=== PATIENT | female | born 1930 | race Caucasian/White ===

== ENCOUNTER → 2016-11-02 | Outpatient (CLI) | payer MEDICARE ==
[~2016-11-02] MED LIST: ASPIR LOW81 MG PO; COLACE100 MG PO; FLONASE ALLERG9.9 ML NAS; FOSAMAX70 MG PO; HYDR25T PO; MECLIZINE25 MG PO; NORVASC10 MG PO; OSCAL/D,OYSTER250 MG PO; SYNTHROID0.05 MG PO
== END | disposition home or self-care (01) ==
LOC: MAMMO 13:57
DX: Z12.31 Encounter for screening mammogram for malignant neoplasm of breast (principal)

== ENCOUNTER 2017-03-07 10:16 | Inpatient (IN) | payer MEDICARE ==
[2017-03-07] VITALS (20 sets, daily range): BP systolic 122–192; BP diastolic 52–131
[~2017-03-07] VITALS: Ht 160 cm; Wt 65.9 kg
--- NOTE | ~2017-03-07 | PR ---
[place], [place] PROGRESS NOTE NAME: CLEMTWAN UNIT #: [id number] ROOM: 529 DOCTOR: KACY ZARATE MD BIRTHDATE: [birth year] DOS: SUBJECTIVE: The patient is doing fine without any complaints this morning. She is anxious to go home. She does not have any complaints of chest pains, palpitations or dizziness. She has no more diarrhea noted. OBJECTIVE: VITAL SIGNS: Blood pressure is 152/65, pulse of 73, respirations 18, temperature 98.5. LUNGS: Clear. HEART: Regular. ABDOMEN: Obese, soft, nontender. EXTREMITIES: Without any edema. LABORATORY DATA: MRSA of the nares negative. BMP shows potassium of 3.2. WBC count is normal, hemoglobin and hematocrit are normal. Echocardiogram showed evidence of wall motion abnormalities in the anterior wall and septum and apex. Troponin was elevated, maximum was 1.79. ASSESSMENT AND PLAN: 1. Acute non-ST elevation myocardial infarction. Nitrates and Lovenox. We will discontinue Lovenox and place the patient on Plavix and aspirin. 2. Adult failure to thrive. Suggested the patient's stay, but she is wanting to go home. She does have visiting nurses at home and the plan is to discharge her to home today to follow up as an outpatient. 3. Complete heart block. Pressures are maintained. She refuses to have any further interventions. KACY ZARATE MD CM:PNTRANS [phone] KACY ZARATE MD 03/09/171752 interface
--- NOTE | ~2017-03-07 | WRIGHTHP ---
[place], [place] PATIENT HISTORY AND PHYSICAL EXAM [id number] UNIT #: [id number] ROOM: [place] [address] DOCTOR: KACY ZARATE MD BIRTHDATE: [birth year] DOS: 03/07/2017 HISTORY OF PRESENT ILLNESS: This patient is 86 years old. The patient had called the office this morning stating that she was having black colored stools and so was advised to come into the emergency room. In the ER, she had a workup, which included Hemoccult, which was negative, but ____ workup, EKG was performed and showed that she was in complete heart block, so she was admitted to the hospital. She denied having any chest pains, palpitations. She felt fine when she came into the emergency room. She did not have any abdominal pain, nausea and emesis and she was taking Pepto-Bismol for her diarrhea which may have caused the stools to be black. After she got admitted to the hospital, she was in the 5th floor, she went to the bathroom, was trying to get back into her bed when she stated that she was not feeling good and developed 8-beat run of V-tach and so the patient was transferred to the ICU. In the ICU again, the patient states that she had some minimal right-sided arm pain with some minimal chest discomfort and tightness almost like a person sitting on her chest. She denies having any shortness of breath, any palpitations, nausea, any emesis, any abdominal pain, any fever or chills. PAST MEDICAL HISTORY: Significant for: 1. Last hospitalization 2 years ago. 2. Benign hypertension. 3. Situs inversus. 4. Osteoporosis. 5. Hypothyroidism. 6. Chronic dizziness with a negative carotid Doppler in 2014. 7. Postmenopausal osteoporosis. MEDICATIONS: Meclizine, Norvasc, calcium, hydrochlorothiazide, levothyroxine, melatonin, rivastigmine. SOCIAL HISTORY: Nonsmoker, does not use any alcohol. Lives at home. She is retired. PHYSICAL EXAMINATION: GENERAL: She is awake and alert and oriented, in no distress at all. VITAL SIGNS: Blood pressure is 182/90, pulse of 52, respirations 20, temperature 97.6. LUNGS: Diminished breath sounds. HEART: Regular. ABDOMEN: Obese, soft, nontender. EXTREMITIES: Without any edema. LABORATORY DATA: Echocardiogram not available. EKG showed complete heart block, the first one in the emergency room. White cell count is normal at 6.7, hemoglobin 13.7. Comprehensive glucose 93, BUN 13, creatinine 0.59, sodium 143, potassium 3.5, chloride 108, bicarbonate 28, calcium 8.5. Liver enzymes normal. ASSESSMENT AND PLAN: 1. Complete heart block noted on EKG. The patient has been admitted. [place], [place] PATIENT HISTORY AND PHYSICAL EXAM NAME: WAN REARDON UNIT #: [id number] ROOM: [place] [address] DOCTOR: KACY ZARATE MD BIRTHDATE: [birth year] Cardiology consultation was obtained. The patient is not on any rate-reducing medicines, but will hold off on all her medicines right now. 2. Nonsustained ventricular tachycardia noted on the monitor. She was sent to the ICU for monitoring, long discussion with the patient as well as cardiology. She did not want any further workup or procedures, so the patient is not going to be transferred. We will monitor her. Nitrates are given for improvement of the perfusion. The patient will be started on Lovenox and aspirin. Echocardiogram will be ordered and try to keep her comfortable here. Code status papers have been signed. 3. Hypothyroidism. Continue home meds. KACY ZARATE MD CM:HISPHYS:PATIENT HISTORY AND PHYSICAL EXAMINATION [id number] KACY ZARATE MD 03/08/17 4633 interface
--- NOTE | ~2017-03-07 | PR ---
[place], [place] PROGRESS NOTE NAME: CLEMTWAN UNIT #: [id number] ROOM: [place] [address] DOCTOR: KACY ZARATE MD BIRTHDATE: [birth year] DOS: SUBJECTIVE: The patient is not having any complaints. She feels good, did have a good night's rest. OBJECTIVE: VITAL SIGNS: Graphic trend shows blood pressure 126/61, pulse of 50, respirations 18, temperature 98.0. LUNGS: Clear. HEART: Regular. ABDOMEN: Obese, soft, nontender. EXTREMITIES: Without any edema. LABORATORY DATA: Troponin was mildly elevated yesterday, initial one was normal at the time of admission in the evening. The troponin after the episode of V-tach did go up to 0.27. No other troponin is available. ASSESSMENT AND PLAN: 1. Complete heart block. The patient has requested no further interventions be performed, so we are not planning for pacemaker. 2. Possibility of a non-ST elevation myocardial infarction. Troponin is slightly elevated. We will repeat a troponin this morning. We will discontinue IV nitroglycerin, place on nitroglycerin paste and continue aspirin.. 3. Benign hypertension. Home meds are on hold. Discussed with the patient, eat a liberal diet. PT will be consulted and hopefully home soon. KACY ZARATE MD CM:PNTRANS [phone] KACY ZARATE MD 03/08/17 1116 interface
--- NOTE | ~2017-03-07 | DS ---
[place], [place] DISCHARGE SUMMARY NAME: WAN REARDON UNIT #: [id number] ROOM: 529 DOCTOR: KACY ZARATE MD BIRTHDATE: [birth year] DOS: 03/09/2017 The patient is 86-year-old. She is going home with visiting nurses. DISCHARGE DIAGNOSES: 1. Acute myocardial infarction. 2. Complete heart block. 3. Nonsustained ventricular tachycardia. 4. Benign hypertension. 5. Age-related cognitive decline. 6. Hypothyroidism. 7. Chronic dizziness. 8. Postmenopausal osteoporosis. 9. Situs inversus. 10. Hypokalemia. DISCHARGE MEDICATIONS: Plavix 75 daily, aspirin 81 daily; nitroglycerin 0.2 mg apply in the morning, remove in the evening; levothyroxine 50 mcg daily, meclizine 25 p.o. every other day, calcium of 500 twice a day, Flonase 2 sprays daily, melatonin 10 at bedtime, Exelon 9.5 daily. Norvasc and hydrochlorothiazide were discontinued. HOSPITAL COURSE: This patient is 86 years old. The patient was brought in because of some black-colored stools and diarrhea that she had at home. She was evaluated in the ER, was found to have complete heart block and the patient was admitted. After admission, she was placed on a monitored floor. She did not have any complaints of chest pains or palpitations when she arrived. Her troponin was normal, but while in the 5th floor, she developed a beat run of V-tach and she was transferred to the ICU. Repeat troponin showed that continued elevation suggesting that the patient did have an IN. Echocardiogram showed dyskinetic alston in the apex anterior and septal area suggesting most likely the patient did have an IN. A consultation with Dr. Lora was obtained. The patient was placed on Lovenox and nitrite. Condition was discussed with the patient as regards to transfer and the pacemaker and cardiac catheterization. The patient refused and wants to be kept comfortable. She is aware of what could happen if these are not performed and the possibility of and she is agreeable to go home to be kept comfortable and not to do any further intervention. Hyperkalemia was noted today. Supplementation will be given. The patient is overall stable. The plan is to discharge her to home with visiting nurses and PT, OT. She is ambulatory without any further complaints of dizziness. [place], [place] DISCHARGE SUMMARY NAME: WAN REARDON UNIT #: [id number] ROOM: 529 DOCTOR: KACY ZARATE MD BIRTHDATE: [birth year] KACY ZARATE MD CM:DISCHEDGAR [phone] KACY ZARATE MD 03/09/17 1024 interface
[~2017-03-07 10:16] MED LIST changes: -MECLIZINE25 MG PO; +Meclizine25 MG PO
[2017-03-07 11:00] LABS: BASO % 0.4 % (0.0-1.0); EOS # 0.1 10*3/uL (0.0-0.4); EOS % 0.9 % (1.0-4.0); HEMATOCRIT 40.2 % (37.0-47.0); HEMOGLOBIN 13.7 g/dl (12.0-16.0); LYMPH # 1.7 10*3/uL (1.3-4.4); LYMPH % 24.8 % (27.0-41.0); MEAN CORPUSCULAR HGB CONC 34.1 g/dl (33.0-37.0); MONO # 0.6 10*3/uL (0.1-1.0); MONO % 8.6 % (3.0-9.0); NEUT # 4.4 10*3/uL (2.3-7.9); PLATELET COUNT AUTOMATED 235 10*3/uL (130-400); RED BLOOD COUNT 4.42 10*6/uL (4.10-5.10); RED CELL DISTRI WIDTH 13.2 % (0-14.5); WHITE BLOOD COUNT 6.7 10*3/uL (4.8-10.8)
[2017-03-07 11:08] LABS: ACT PARTIAL THROMBO TIME 27.5 SECONDS (20.8-31.5); INTERNATIONAL NORM RATIO 1.1 (2.0-3.5)
--- NOTE | 2017-03-07 11:09 | NUR ---
PATIENT STATES THAT SHE CANNOT REMEMBER WHEN HER BLACK TARRY STOOLS STARTED. STATES SHE NOTICED THEM ALL WEEK.
[2017-03-07 11:13] LABS: ALBUMIN 3.6 gm/dl (3.1-4.5); ALKALINE PHOSPHATASE 76 U/L (45-117); BUN 13 mg/dl (7-24); CHLORIDE 108 mmol/L (98-107); CREATININE 0.59 mg/dL (0.55-1.02); MAGNESIUM 2.2 mg/dL (1.5-2.1); POTASSIUM 3.5 mmol/L (3.5-5.1); SGOT/AST 15 IU/L (3-35); SGPT/ALT 16 U/L (12-78); SODIUM 143 mmol/L (136-145); TOTAL PROTEIN 7.4 gm/dL (6.4-8.2)
[2017-03-07 11:40] LABS: TROPONIN I < 0.015 ng/ml (<0.045)
--- NOTE | 2017-03-07 11:40 | NUR ---
PATIENT HEMACULT DONE AT THIS TIME THIS NURSE AT BEDSIDE WITH DR FOSTER. NEGATIVE.
--- NOTE | 2017-03-07 11:44 | NUR ---
REPORT GIVEN TO MIGUEL HURTADO AT THIS TIME.
[2017-03-07 11:45] LABS: THYROID STIM HORMONE (HS) 0.919 uIU/ml (0.358-4.75)
--- NOTE | 2017-03-07 12:09 | NUR ---
IV STARTED L ARM 1 UNSUCCESSFUL ATTEMPT TO LEFT ARM PT TOLERATED WELL NO DISTRESS NOTED CALL LIGHT IN REACH
--- NOTE | 2017-03-07 12:22 | NUR ---
PT RESTING IN BED NO DISTRESS DENIES PAIN AT THIS TIIME AWAKE ALERT ORIENTED NO COMPLAINTS VOICED CALL LIGHT IN REACH
--- NOTE | 2017-03-07 12:30 | NUR ---
ASSISTED PT TO BATHROOM NO DISTRESS NOTED DENIES SOB OR DIZZINESS WHEN STOOD AND GOT IN WC
--- NOTE | 2017-03-07 13:10 | NUR ---
A 86, admitted to , under the services of KACY Barakat MD with a diagnosis of COMPLETE HEART BLOCK . Chief complaint is BLACK TARRY STOOL. Patient arrived via CART WITH RN from ER. Monitor applied. Initial assessment completed. Vital signs taken and recorded. KACY BARAKAT MD notified of admission to the unit. Orders received. See assessment for past medical history, medications and allergies. Patient and/or family oriented to unit. [facility] ICCU visitation policy reviewed. Clothing/patient valuable form completed. STEPHANIE LAM
[2017-03-07] MEDS ORDERED: MELATONIN10 M2 PO (13:49)
[2017-03-07] MEDS ORDERED: EXELON1 EAC1 T (13:50)
--- NOTE | 2017-03-07 14:18 | NUR ---
PT BEGAN C/O CHEST PRESSURE AND DYSPNEA WHILE WALKING FROM THE BATHROOM WITH THE PADENNY.VITALS OBTAINED.PT BECAME PALE AND C/O NAUSEA. PLACED PT ON 2LNC.ORDERED STAT EKG, NOTIFIED DR BROWN AND DR ZARATE. VITALS OBTAINED.BP 182/90, HR 88.
--- NOTE | 2017-03-07 14:29 | NUR ---
PT GULPING FOR AIR AND STILL C/O NAUSEA, AND PRESSURE TO RIGHT ARM. DR FRIEND ARRIVED TO SEE PT.
--- NOTE | 2017-03-07 14:30 | NUR ---
PT TRANSFERRED TO ICCU FROM 5E R/T COMPLETE HEART BLOCK WITH RUNS OF VTACH AND CHEST PAIN. DR ZARATE AND DR BROWN WERE HERE TO ASSESS UPON ARRIVAL. ORDERS RECIEVED AND CARRIED OUT.
--- NOTE | 2017-03-07 14:36 | NUR ---
EKG GIVEN TO DR FRIEND AND ORDER RECIEVED TO TRANSFER PT TO UNIT.
--- NOTE | 2017-03-07 14:50 | NUR ---
Pt. transferred to ICCU via CART ACCOMPANIED BY RN per order of Dr. BROWN. Bed # 11. Cloud Autom[employer] Tester notified. Family notified. Personal belongings retained on unit.Report given to Tia Marquez RN. STEPHANIE LAM
--- NOTE | 2017-03-07 20:19 | NUR ---
PT. RESTING IN BED WATCHING TV. DENIES CHEST PAIN OR DISCOMFORT. PULSE OX 95% ON 1L NC. LUNGS CLEAR. ABDOMEN SOFT, NONDISTENDED AND NORMO. NO PERIPHERAL EDEMANOTED. HEP LOCK IN LA ASYMPT. GENNY DURHAM RN
--- NOTE | 2017-03-07 23:46 | NUR ---
PT. GIVEN AMBIEN AT 2224 FOR COMPLAINTS OF INABILITY TO SLEEP. CURRENTLY SLEEPING, AMBIEN EFFECTIVE. GENNY DURHAM RN
[2017-03-08] VITALS (12 sets, daily range): BP systolic 107–154; BP diastolic 52–99
--- NOTE | 2017-03-08 08:00 | NUR ---
Section Gang Worker in to talk to patient. Patient states lives at HOME ALONE with . There are 3 steps in the home. Physician: DR ZARATE Pharmacy: Home health services: [facility] NURSE AND [facility].T. Patient's level of ADLs: MINIMAL ASSIST Patient has working utilities: YES DME: HAS WALKER AND CANE BUT NOT USING Follow-up physician's appointment after d/c: PREFERS TO MAKE HER OWN APPT Does patient want to access PORTAL?: Discharge plan HOME. RADHA ISAAC [facility] NOTIFIED THAT PT IS HERE.
--- NOTE | 2017-03-08 08:44 | NUR ---
DR. ZARATE AND DR. BROWN HAVE ROUNDED.
--- NOTE | 2017-03-08 09:05 | NUR ---
PHYSICAL THERAPY PAtient evaluated in ICCU, full evaluation to follow. Comntinue with PT as per plan of care with fall, cardiac and active GA precautions. Home with home health RN and PT as prior. PAtient is modrate complexity via chart review, tests and evaluation: [id number]. Thank you for this referral. Jia Beard,PT
--- NOTE | 2017-03-08 09:12 | NUR ---
NITRO GTT HAS BEEN TITRATED OFF.
--- NOTE | 2017-03-08 10:40 | NUR ---
LEFT MESSAGE AT DR. ZARATE OFFICE THAT DR. BROWN PUT IN ORDER OK TO TRANFER TO [facility] NITRO GTT IS OFF.
--- NOTE | 2017-03-08 12:12 | NUR ---
PHYSICAL THERAPY Mrs Hale was seen this PM 1:1 for her therapy session. Said that she could go now but could i come back tomorrow that would be better. ROSA COLON COOK FRUIT.
--- NOTE | 2017-03-08 12:35 | NUR ---
PATIENT TO TRANSFER TO STEP DOWN.
--- NOTE | 2017-03-08 13:15 | NUR ---
PATIENT TRANSFERED TO 529 NURSE TO NURSE REPORT GIVEN.
--- NOTE | 2017-03-08 13:39 | NUR ---
PATIENT ARRIVED TO FLOOR FROM ICU, SHE IS ALERT AND ORIENTED, RESPIRATIONS EASY AND REGULAR ON ROOM AIR, MASTICATOR IN PLACE; 3RD DEGREE HEART BLOCK RATE 50'S AND IRREGULAR NOTED. SHE DENIES ANY CHEST PAIN, SHORTNESS OF BREATH, DISCOMFORT, OR ACTIVITY INTOLERANCE.
--- NOTE | 2017-03-08 20:49 | NUR ---
SPOKE TO REGARDING PATIENT CLAIMS OF BLACK LIQUID STOOL. NEW ORDER RECEIVED FOR C-DIFF X3, STOOL CULTURE, AND FECAL OCCULT IMMUNOSAY. CBC AND BMP ALREADY ORDERED FOR TOMORROW MORNING.
--- NOTE | 2017-03-08 22:21 | NUR ---
PT MEDICATED WITH PO AMBIEN FOR C/O INSOMNIA. WILL MONITOR EFFECTIVENESS. CALL LIGHT LEFT IN REACH.
[2017-03-09] VITALS: BP 152/65
--- NOTE | 2017-03-09 00:11 | NUR ---
PATIENT SLEEPING IN BED AT THIS TIME. EARLIER MEDICATION APPEARS EFFECTIVE. WILL MONITOR.
--- NOTE | 2017-03-09 03:26 | NUR ---
PATIENT ASLEEP IN BED. RESPIRATIONS EASY. NO S/S OF DISTRESS NOTED. WILL MONITOR.
[2017-03-09 06:14] LABS: BUN 11 mg/dl (7-24); CHLORIDE 110 mmol/L (98-107); CREATININE 0.66 mg/dL (0.55-1.02); POTASSIUM 3.2 mmol/L (3.5-5.1); SODIUM 146 mmol/L (136-145)
[2017-03-09 06:26] LABS: BASO % 0.5 % (0.0-1.0); EOS # 0.1 10*3/uL (0.0-0.4); EOS % 0.9 % (1.0-4.0); HEMATOCRIT 37.1 % (37.0-47.0); HEMOGLOBIN 12.4 g/dl (12.0-16.0); LYMPH # 2.3 10*3/uL (1.3-4.4); LYMPH % 30.7 % (27.0-41.0); MEAN CELL VOLUME 91.2 fl (81.0-99.0); MEAN CORPUSCULAR HGB 30.5 pg (27.0-31.0); MEAN CORPUSCULAR HGB CONC 33.4 g/dl (33.0-37.0); MEAN PLATELET VOLUME 12.4 fl (9.6-12.3); MONO # 0.7 10*3/uL (0.1-1.0); MONO % 9.5 % (3.0-9.0); NEUT # 4.4 10*3/uL (2.3-7.9); NEUT % 58.1 % (47.0-73.0); PLATELET COUNT AUTOMATED 224 10*3/uL (130-400); RED BLOOD COUNT 4.07 10*6/uL (4.10-5.10); RED CELL DISTRI WIDTH 13.2 % (0-14.5); WHITE BLOOD COUNT 7.6 10*3/uL (4.8-10.8)
[2017-03-09 08:00] VITALS: BP 150/78
[2017-03-09] MEDS ORDERED: CLOPIDOGREL75 MG PO (08:37)
[2017-03-09] MEDS ORDERED: Transderm-Nitr0.2 MG T (08:37)
--- NOTE | 2017-03-09 10:06 | NUR ---
PHYSICAL THERAPY Adeline seen this AM 1:1 for her therapy treatment. Pt moved out of ICCU to 529-1. All transfers were CG X 1, no LOB. Gait total 210' X 2, no LOB CG X 1. Dr Richard said that Mrs Hale is to go home today. ROSA COLON SERIALS LIBRARIAN.
--- NOTE | 2017-03-09 10:37 | NUR ---
Patient being discharged to home to resume home health. Contacted [facility] and faxed clinicals
--- NOTE | 2017-03-09 11:41 | NUR ---
PHYSICAL THERAPY CO-SIGN I approve of the Phyical Therapy notes written above. VERONIKA ANDUJAR PT
--- NOTE | 2017-03-09 12:32 | NUR ---
1232 Discharge instructions reviewed with patient. Patient receptive and verbalizes understanding. Follow-up care arranged. Written instructions given to patient. BRINDA DRIVER
== END 2017-03-09 12:32 | disposition home health service (06) | DRG 281 ==
LOC: ED 10:16 → 5E 11:54 → EDHOLD 11:54 → ICCU 11:54 → 5E 12:42 → ICCU 14:47 → 5E 03-08 12:52
PROVIDERS: Emergency Medicine; ADMIT Internal Medicine
DX: I21.09 ST elevation (STEMI) myocardial infarction involving other coronary artery of anterior wall (principal); I44.2 Atrioventricular block, complete; Q89.3 Situs inversus; R41.81 Age-related cognitive decline; I10 Essential (primary) hypertension; Z66 Do not resuscitate; R42 Dizziness and giddiness; E89.0 Postprocedural hypothyroidism; Z51.5 Encounter for palliative care; R62.7 Adult failure to thrive; M81.0 Age-related osteoporosis without current pathological fracture; E87.6 Hypokalemia; Z79.82 Long term (current) use of aspirin; Z79.899 Other long term (current) drug therapy; Z80.9 Family history of malignant neoplasm, unspecified

== ENCOUNTER → 2017-03-11 | Outpatient (CLI) | payer MEDICARE ==
[~2017-03-11] MED LIST changes: +CLOPIDOGREL75 MG PO; +EXELON1 EAC1 T; +MELATONIN10 M2 PO; +Transderm-Nitr0.2 MG T
== END | disposition home or self-care (01) ==
LOC: LAB 00:01
DX: R19.7 Diarrhea, unspecified (principal)

== ENCOUNTER → 2017-03-12 | Outpatient (CLI) | payer MEDICARE | END | disposition home or self-care (01) | LOC: LAB 00:01 | DX: R19.7 Diarrhea, unspecified (principal) ==

== ENCOUNTER → 2017-03-13 | Outpatient (CLI) | payer MEDICARE | END | disposition home or self-care (01) | LOC: LAB 11:39 | DX: R19.7 Diarrhea, unspecified (principal) ==

== ENCOUNTER 2018-03-15 16:53 | Emergency (ER) | payer MEDICARE ==
[~2018-03-15] VITALS: Ht 165.1 cm; Wt 63.5 kg
--- NOTE | ~2018-03-15 | EKG ---
[place], [place] ELECTROCARDIOGRAM REPORT NAME: CLEMTWAN UNIT #: [id number] ROOM: DOCTOR: LAUREL DRAFT REPORT BIRTHDATE: [birth year] [facility] Test Date: 2018-03-15 Test Time: 17:19:16 Pat Name: WAN REARDON Department: Room: Gender: F Die Set Up Worker: : 1930 Requested By: RONA FOSTER Order Number: [id number] Reading MD: Delaney Roldan MD Measurements Intervals [place] Rate: 66 P: 0 W[place]: QRS: 193 QRSD: 104 T: 93 QT: 417 QTc: 437 Interpretive Statements AV block, complete (third degree) Consider left ventricular hypertrophy Limb lead reversal Compared to ECG 03/14/2018 13:59:30 Sinus rhythm no longer present Junctional rhythm no longer present Electronically Signed On 03-20-2018 13:51:35 PDT by Delaney Roldan MD CM:EKGRPT:ELECTROCARDIOGRAM REPORT [id number] RONA BARRAGAN DRAFT REPORT RONA FOSTER MD
[2018-03-15 17:53] LABS: BUN 27 mg/dl (7-24); CHLORIDE 105 mmol/L (98-107); CREATININE 1.02 mg/dL (0.55-1.02); POTASSIUM 3.6 mmol/L (3.5-5.1); SODIUM 139 mmol/L (136-145)
[2018-03-15 17:56] LABS: TROPONIN I 0.025 ng/ml (<0.045)
[2018-03-15 18:45] VITALS: BP 170/80
== END 2018-03-15 18:52 | disposition short-term general hospital (02) ==
LOC: ED 16:53
PROVIDERS: Emergency Medicine
DX: I44.2 Atrioventricular block, complete (principal); R79.1 Abnormal coagulation profile; I25.2 Old myocardial infarction; Z79.899 Other long term (current) drug therapy; Z90.49 Acquired absence of other specified parts of digestive tract; Z90.89 Acquired absence of other organs

== ENCOUNTER 2019-02-20 21:01 | Inpatient (IN) | payer MEDICARE ==
[~2019-02-20] VITALS: Ht 160 cm; Wt 60.4 kg
--- NOTE | ~2019-02-20 | CON ---
[place], [place] REPORT OF CONSULTATION NAME: WAN REARDON UNIT #: [id number] ROOM: 525 DOCTOR: PHD FATUMA DAVEY BIRTHDATE: [birth year] DOS: 02/21/2019 HISTORY OF PRESENT ILLNESS: The patient is an 88-year-old female referred by Dr. Kenny to determine appropriateness for inpatient psychiatric treatment. At the present time, the patient is on the 5th floor at [facility]. The patient was recently discharged from [facility]. She had presented with nausea, vomiting and anxiety. She returned with nausea, vomiting, dizziness, anxiety and statements that she is ready to . She is living alone. She has been 3 times and all 3 of her husbands have . She also lost one of her sons in an accident when he was younger. She has two remaining sons and some stepchildren whom she keeps in contact. She worked in the past at a [employer]. She denied alcohol, tobacco or illegal drug use. PAST MEDICAL HISTORY: Adult failure to thrive, late onset Alzheimer type dementia, generalized anxiety disorder, benign essential hypertension, situs inversus totalis, hypothyroidism, chronic dizziness, complete heart block with pacemaker placement, coronary artery disease of [place] vessels, major depressive disorder. MEDICATIONS: Aspirin, Remeron, Geodon, Maalox, milk of magnesia, Tylenol, Antivert, Reglan, Zestril, Exelon, Norvasc, Zoloft, Namenda, Plavix, Os-Luigi D, Synthroid, Augmentin, Rocephin, Ativan. MENTAL STATUS EXAMINATION: The patient was lying comfortably in bed, in no apparent distress. She was awake, alert and oriented to person, place and generally to time. Mood was depressed and anxious. Affect was blunted. She stated that she is "anxious to be with the Lord and he is not ready for me yet." She stated that she would not take any actions to end her life and that she keeps "praying he will take me." She denied a history of mental health treatment. She denied a significant mental health history. Speech was within normal limits with respect to rhythm, rate, volume and tone. She had mild word finding difficulties in conversation. Thought process was goal directed. There is no evidence of hallucinations or delusions. There were some short and long-term memory gaps apparent in conversation. She stated that her appetite has been poor lately. She is worried about being "burden" to people in her life and she is having a hard time finding a purpose in life. DIAGNOSES: Major depressive disorder, recurrent, severe, without psychotic features; unspecified anxiety disorder; unspecified neurocognitive disorder. PLAN: Given the patient's desire for she appears to be an appropriate candidate for the [facility], she is agreeable, she is signing in voluntarily. I consulted with Lala on the [facility]. Dr. Smith has agreed to admit the patient once she is medically stable. Thank you very much for this consult. [place], [place] REPORT OF CONSULTATION NAME: WAN REARDON Jluis UNIT #: [id number] ROOM: [facility] DOCTOR: FATUMA, PHD DAVEY BIRTHDATE: [birth year] Ivette Hinds, PhD CM:CONSTR:REPORT OF CONSULTATION 1718 02/22/19 0239 interface
--- NOTE | ~2019-02-20 | WRIGHTHP ---
[place], [place] PATIENT HISTORY AND PHYSICAL EXAM NAME: WAN REARDON UNIT #: [id number] ROOM: 525 DOCTOR: JOELLEN WASHBURN MD BIRTHDATE: [birth year] DOS: 02/21/2019 HISTORY OF PRESENT ILLNESS: The patient is an 88-year-old female with recent discharge from [facility] for nausea, vomiting and significant anxiety. She has a past medical history of: 1. Old age and adult failure to thrive. 2. Late onset Alzheimer's type dementia. 3. Generalized anxiety disorder. 4. Benign essential hypertension. 5. Situs inversus totalis. 6. Hypothyroidism. 7. Chronic dizziness. 8. Hypothyroidism. 9. Complete heart block with pacemaker placement. 10. Coronary artery disease of [place] vessels. The patient presented with recurrent nausea, vomiting, dizziness, anxiety and repeatedly saying that she is ready to . An attempt was made to put her on BHU but when she was found figured out to have a urinary tract infection, she was recommended to be admitted to a regular floor under my care. The patient was somewhat confused and disoriented in the ER and was saying "I want God to take me now and I am ready to " and maintained a DNR comfort care code status. The patient was admitted for treatment of urinary tract infection and she is growing E. coli more than 100,000 colonies in the urine, sensitive to all antibiotics. No chest pain, no shortness of breath, no other GI or urinary symptoms. REVIEW OF SYSTEMS: RESPIRATORY: No increasing shortness of breath. GASTROINTESTINAL: The patient had recurrent nausea, vomiting and dizziness. CARDIOVASCULAR: No chest pain or palpitations. FAMILY HISTORY: Noncontributory. HOME MEDICATIONS: The patient is on aspirin, lisinopril, rivastigmine, amlodipine, Zoloft, memantine, Plavix. PHYSICAL EXAMINATION: GENERAL APPEARANCE: The patient is alert and oriented x 3, in no visible distress. HEENT AND NECK: Extraocular movements are intact. Sclerae are anicteric. Oral mucosa is moist and clean. No obvious facial weakness. Neck is supple without any lymphadenopathy. No thyromegaly. No JVD. No carotid arterial bruits. LUNGS: Clear to auscultation. No wheezing. No rhonchi. CARDIOVASCULAR SYSTEM: Heart rate is regular in rate and rhythm. S1 and S2 normally audible. No significant murmur or any other abnormal cardiac sounds. ABDOMEN: Soft, nontender. No obvious organomegaly. Bowel sounds are present. No obvious herniation. EXTREMITIES: Without significant cyanosis or edema. Warm to touch. CENTRAL NERVOUS SYSTEM: Alert and oriented x 3. Cranial nerves II-XII are [place], [place] PATIENT HISTORY AND PHYSICAL EXAM NAME: WAN REARDON UNIT #: [id number] ROOM: [facility] DOCTOR: JOELLEN WASHBURN MD BIRTHDATE: [birth year] intact. Speech is normal. The patient is able to move all extremities. Normal muscle strength. Deep tendon reflexes are equal on both sides. Plantars were downgoing. IMPRESSION: 1. Recurrent nausea, vomiting and gastroparesis associated with dizziness and anxiety. I am going to treat her with Reglan and Antivert. If she becomes asymptomatic, she will be discharged to home in a day or two. 2. The patient with old age and saying "I am ready for God to take me and I have lived long enough for this." Patient is going to be seen by Dr. Smith, the psychiatrist and he will determine if the patient qualifies to be kept at [facility] for some time. Dr. Smith to see the patient. 3. Adult failure to thrive. The patient working with physical therapy and we are taking fall and bedsore precautions. JOELLEN WASHBURN MD CM:HISPHYS:PATIENT HISTORY AND PHYSICAL EXAMINATION [id number] JOELLEN WASHBURN MD 02/21/19 1058 interface
--- NOTE | ~2019-02-20 | EKG ---
[place], [place] ELECTROCARDIOGRAM REPORT NAME: CLEMTWAN UNIT #: [id number] ROOM: 525 DOCTOR: LAUREL DRAFT REPORT BIRTHDATE: [birth year] [facility] Test Date: 2019-02-20 Test Time: 22:46:09 Pat Name: WAN REARDON Department: Room: [facility] Gender: F Corporate Quality Engineer: Debbie Morillo : 1930 Requested By: TRISTEN CEDEÑO Order Number: [id number] Reading MD: Thanh Gurrola MD Measurements Intervals [place] Rate: 89 P: 136 NV: 243 QRS: 239 QRSD: 135 T: 77 QT: 412 QTc: 502 Interpretive Statements Atrial-sensed ventricular-paced rhythm No further analysis attempted due to paced rhythm Baseline wander in lead(s) II,III,aVR,aVF,V3,V4 Compared to ECG 02/18/2019 16:39:45 No significant changes Electronically Signed On 02-21-2019 14:17:37 PDT by Thanh Gurrola MD CM:EKGRPT:ELECTROCARDIOGRAM REPORT [id number] TRISTEN COLÓN DRAFT REPORT TRISTEN CEDEÑO DO
[~2019-02-20 21:01] MED LIST changes: +ADVIL PM CAPLE1 EACH PO; +AUGMENTIN 875-875 MG PO; +EXELON PO; +NAMENDA10 MG PO; +ZESTRIL10 MG PO; +ZOLOFT50 MG PO
[2019-02-20 21:05] VITALS: BP 138/88
[2019-02-20 21:49] LABS: BASO % 0.3 % (0.0-1.0); EOS % 0.1 % (1.0-4.0); HEMATOCRIT 44.2 % (37.0-47.0); HEMOGLOBIN 14.8 g/dl (12.0-16.0); LYMPH # 1.3 10*3/uL (1.3-4.4); LYMPH % 11.6 % (27.0-41.0); MEAN CELL VOLUME 94.8 fl (81.0-99.0); MEAN CORPUSCULAR HGB 31.8 pg (27.0-31.0); MEAN CORPUSCULAR HGB CONC 33.5 g/dl (33.0-37.0); MEAN PLATELET VOLUME 10.8 fl (9.6-12.3); MONO # 0.7 10*3/uL (0.1-1.0); MONO % 6.3 % (3.0-9.0); NEUT # 9.1 10*3/uL (2.3-7.9); NEUT % 81.3 % (47.0-73.0); PLATELET COUNT AUTOMATED 283 10*3/uL (130-400); RED BLOOD COUNT 4.66 10*6/uL (4.10-5.10); RED CELL DISTRI WIDTH 13.2 % (0-14.5); WHITE BLOOD COUNT 11.2 10*3/uL (4.8-10.8)
[2019-02-20 22:04] LABS: ALBUMIN 4.3 gm/dl (3.1-4.5); ALKALINE PHOSPHATASE 82 U/L (45-117); BUN 9 mg/dl (7-24); CHLORIDE 106 mmol/L (98-107); POTASSIUM 3.2 mmol/L (3.5-5.1); SGOT/AST 27 IU/L (3-35); SGPT/ALT 20 U/L (12-78); SODIUM 139 mmol/L (136-145)
[2019-02-20 22:06] LABS: ACETAMINOPHEN (TYLENOL) < 5.0 ug/ml (10-30); ETHYL ALCOHOL < 3.0 mg/dl (<3)
[2019-02-20 22:12] LABS: THYROID STIM HORMONE (HS) 0.565 uIU/ml (0.358-4.75)
[2019-02-21 00:27] LABS: BILIRUBIN NEGATIVE (NEGATIVE); BLOOD TRACE-INTACT (NEGATIVE); CLARITY CLEAR (CLEAR); COLOR YELLOW (YELLOW); GLUCOSE NEGATIVE (NEGATIVE); KETONE 1+ (NEGATIVE); LEUKO ESTERASE TRACE (NEGATIVE); NITRITE POSITIVE (NEGATIVE); PH 6.5 (5.0-9.0); UROBILINOGEN 0.2 E.U./dl (0.2-1.0)
[2019-02-21 00:33] LABS: BACTERIA 2+
[2019-02-21 00:35] LABS: URINE AMPHETAMINES < 1000 (1000ng/ml); URINE BARBITURATES < 200 (200ng/ml); URINE BENZODIAZEPINES < 200 (200ng/ml); URINE CANNABINOIDS (THC) < 50 (50ng/ml); URINE COCAINE < 300 (300ng/ml); URINE METHADONE < 300 (300ng/ml); URINE OPIATES < 300 (300ng/ml)
[2019-02-21 00:41] LABS: URINE PHENCYCLIDINE < 25 (25ng/ml)
[2019-02-21 01:10] VITALS: BP 129/87
[2019-02-21 01:30] VITALS: BP 160/78
[2019-02-21 08:00] VITALS: BP 152/71
[2019-02-21 12:00] VITALS: BP 157/70
[2019-02-21 16:00] VITALS: BP 153/71
[2019-02-21 20:00] VITALS: BP 152/80
[2019-02-22] VITALS: BP 136/66
[2019-02-22 08:00] VITALS: BP 140/68
[2019-02-22] MEDS ORDERED: MECLIZINE HCL25 M2 PO (10:08)
[2019-02-22] MEDS ORDERED: METOCLOPRAMIDE H5 M1 PO (10:08)
== END 2019-02-22 11:15 | disposition home or self-care (01) | DRG 690 ==
LOC: ED 21:01 → EDHOLD 02-21 01:06 → 5E 02-21 01:06 → EDBEDREQ 02-21 01:14 → 5E 02-21 01:26
PROVIDERS: Emergency Medicine; ADMIT Internal Medicine
DX: N39.0 Urinary tract infection, site not specified (principal); G93.40 Encephalopathy, unspecified; I44.2 Atrioventricular block, complete; R62.7 Adult failure to thrive; F03.90 Unspecified dementia, unspecified severity, without behavioral disturbance, psychotic disturbance, mood disturbance, and anxiety; Z66 Do not resuscitate; R31.9 Hematuria, unspecified; F41.1 Generalized anxiety disorder; E03.9 Hypothyroidism, unspecified; I25.10 Atherosclerotic heart disease of native coronary artery without angina pectoris; Z88.1 Allergy status to other antibiotic agents; I25.2 Old myocardial infarction; Z90.49 Acquired absence of other specified parts of digestive tract; Z80.8 Family history of malignant neoplasm of other organs or systems; Z68.22 Body mass index [BMI] 22.0-22.9, adult